=== PATIENT | female | born 1980 | race Caucasian/White ===

== ENCOUNTER → 2017-06-16 15:25 | Outpatient (CLI) | payer MEDICAID, SELFPAY ==
[2017-06-19 08:46] LABS: HPV APTIMA, High Risk Negative (Negative)
== END ==
PROVIDERS: Family Provider Internal Medicine; PCP Internal Medicine; Visit Provider Obstetrics & Gynecology
DX: Z01.419 Encounter for gynecological examination (general) (routine) without abnormal findings (principal); Z12.4 Encounter for screening for malignant neoplasm of cervix
CPT/HCPCS: 88175; G0145

== ENCOUNTER → 2017-08-04 12:32 | Outpatient (CLI) | payer MEDICAID, SELFPAY ==
--- NOTE | 2017-08-04 12:32 | DT_ITS ---
This patient was seen during an EMR downtime August 04, 2017 - August 11, 2017. This patient may have a combination of paper and electronic documentation or all paper documentation. All documentation is viewable within the e-chart portion of [facility] for each patient visit.
[2017-08-10 19:42] LABS: Vitamin D,25 Hydroxy 30.8 ng/mL (29.95-100.01)
== END ==
PROVIDERS: Family Provider Internal Medicine; PCP Internal Medicine; Visit Provider Obstetrics & Gynecology
DX: E55.9 Vitamin D deficiency, unspecified (principal)
CPT/HCPCS: 36415; 82306

== ENCOUNTER 2018-05-18 17:31 | Emergency (ER) | payer MEDICAID, SELFPAY ==
[2018-05-18 17:31] VITALS: BP 120/83; PULSE 100; RESP 16; TEMP 36.6; O2SAT 100; BMI 23.7
[2018-05-18] MEDS: 0.9% Normal Saline 1,000 ML 1000 ML IV (18:30)
[2018-05-18 18:45] LABS: Absolute Neutrophil Count 3.1 X10^3/uL (2.0-7.7); Basophil# 0.05 X10^3/uL; Basophil% 0.9 % (0-1); Eosinophil# 0.17 X10^3/uL; Hematocrit 40.1 % (37-47); Hemoglobin 13.3 g/dl (12.0-15.0); Lymphocyte % 35.1 % (19-41); Mean Corp Hgb Conc 33.2 g/gl (32-36); Mean Corpuscular Hgb 28.5 pg (27.0-32.0); Mean Corpuscular Volume 86.1 fL (81-99); Mean Platelet Vol. 9.5 fl (6.2-12.0); Monocyte# 0.38 X10^3/uL; Monocyte% 6.7 % (0-10); Neutrophil # 3.08 X10^3/uL (2.7-7.7); Neutrophil % 54.1 % (47-70); Platelet Count 287 K/mm3 (150-450); RBC Distribution Width CV 12.7 % (11.6-14.6); RBC Distribution Width SD 40.1 fl (35.1-43.9); Red Blood Count 4.66 M/mm3 (4.2-5.4); White Blood Count 5.7 K/mm3 (4.4-11.0)
[2018-05-18 18:47] LABS: POSITIVE COUNT NO; POSITIVE DIFFERENTIAL NO; POSITIVE MORPHOLOGY NO
[2018-05-18 19:48] LABS: Pregnancy, Serum, hCG Quali. NEGATIVE Negative (0-9 Nonpreg)
[2018-05-18 19:57] VITALS: BP 119/82; BP 121/85; BP 131/91; PULSE 74; PULSE 77; PULSE 80
--- NOTE | 2018-05-18 20:02 | ED.DCSUM_ITS ---
- ER Visit Summary Date of Service: 05/18/18 Chief Complaint: [Vaginal bleeding] History of Present Illness: The patient is a 37 F [presents the emergency department complaint of vaginal bleeding that started 3 days ago. Patient states that she said about 2 weeks late on her period and started having some bleeding 3 days ago. Today the bleeding was more severe and she is on for about 6 pads today and she is passing clots so she called in to talk to her MEDICAID PLAN COMPLIANCE DIRECTOR and they referred her to the emergency part. Patient denies any abdominal pain. She does not believe she is . Her had a vasectomy and has had that checked. Patient has a history of endometriosis. Patient has had irregular periods at times.] Physical Examination: [HEENT-PERRLA, EOMI. Cranial nerves II through XII grossly intact. TMs clear. Mucous membranes moist. No adenopathy. Cardiovascular-regular rate and rhythm without murmur or ectopy Lungs-clear to auscultation, chest wall stable without crepitus or subcu emphysema Abdomen-normoactive bowel sounds, soft, nontender, no rebound or rigidity, no peritoneal signs. Extremities-intact ?4, normal range of motion, normal pulses, atraumatic] Test Results: [CBC with differential obtained showed a white count of 5.7, hemoglobin 13, hematocrit 40, platelets 287. test was negative. Orthostatic vital signs were negative.] Emergency Department Course and Treatment: [Patient was given normal saline. Case was discussed with Dr. Conner Briseno who asked that patient follow-up with their office.] Treatment Plan: [Patient to follow-up with MEDICAID PLAN COMPLIANCE DIRECTOR office within next 3-5 days. Patient advised to return if persistent or heavy bleeding, lightheadedness, dizziness, or if she should be going through more than 1 pad an hour for 4 consecutive hours.] Disposition: [Discharged home in stable condition] Impression: [Dysfunctional uterine bleeding] This note was generated with [employer] dictation software. It may contain incorrect words, spelling, and punctuation that were not noted in review of the chart prior to signing ED Disposition - Plan for ED Patient: Referrals: Barbara Nowak MD [Primary Care Provider] -
--- NOTE | 2018-05-18 20:02 | ED.DEP ---
ED Disposition - Plan for ED Patient: Instructions: ED Bleed Irregular Vaginal Referrals: Barbara Nowak MD [Primary Care Provider] - Gracie Tran MD [STAFF PHYSICIAN] - 3-5 Days
== END 2018-05-18 20:08 | disposition home or self-care (01) ==
PROVIDERS: Emergency Provider Emergency Medicine; Family Provider Internal Medicine; PCP Internal Medicine
DX: N93.8 Other specified abnormal uterine and vaginal bleeding (principal)
CPT/HCPCS: 84703; 85025; 96360; 96361; 99284; J7030; A4216

== ENCOUNTER 2018-06-05 11:30 | Outpatient (RCR) | payer MEDICAID, SELFPAY ==
--- NOTE | 2018-05-14 12:04 | HP.PTEVAL_ITS ---
Patient's Visit Information FAY LINDSEY is a 37 year old F referred to Physical Therapy by Enio Banuelos MD with a diagnosis of cervicalgia. Date of Evaluation: 05/14/18 Physical Therapist: Yuan Zaldivar, MENAT, OCS, CSCS - Visit Plan Frequency: 2x /Week Duration: 4-6 Weeks Plan: 2x/week for L cervical STM, stretching adn c/s ROM L rotationa dn extension to tolerance. EG to see weekly to progress VOR adaptation ex. - Subjective Findings: sAW FAMILY DOCTOR who sent to ENT. Getting nausea and dizzyness. Room spins for a week 3 weeks ago. Lying flat on hard surface and sat up and spun the whole day, then felt like aon a boat. Had is previously as a teenager. Had BPPV one time in between. Definitely immroving as she could not move at first adn could not drive. Second week had to be careful driving. Scenery passing made her sick. Still now needs to be careful looking up and down. Feels like on a boat most of time but increased with head movements. Currently 90% better. Was sleepign sitting up because could not lie down. Sleeping semi reclined well. Works as cleaning lady on Tuesdays and felt normal this Friday and work made her worse. Missed two weeks of cleaning. Hobbies: Reading and cannot do it for a while. Scrolling on phone can make her nauseous. Took a walk the other day and did OK, grocery store is worse. basic ADLs.Sees chiropractor and feels better afterwards. no balance problems except when dizzy. Regular exercises. HIT but not lately. - Pain neck pain Pain Intensity (Out of 10): 3 Pain Intensity Range: 2, 7 Comment: tension RIOS, base of skull - Objective c/s aROM 70 R rot, 55 L rotation with pain, 55 ext with crunchy, weak feelign in neck.Sensation WNL to gross light touch in UE, reflexes 2/3 bi and tri. Full UE AROM without pain. Repeated retraction NE. No dizzyness. Oculomotor: VOR 30 seconds horiz 3/10 for one minute. VOR vertical 20 sec 5/10 for 1-2 minutes. - head thrust. convergence OK. pursuit adn saccades are normal adn asymptomatic. - skew eye deviation. Balance is good. - B hallpike but L gives asymmetrical dizzyness adn treated with Brian Chaves. - Balance Scores Functional Gait Assessment Score: 30 % Disability: 0 - Goals Goal 1:: Abolish vertigo. Goal Time Frame: 4-6 Weeks Goal 2:: Pt back to normal exercises and activities. Goal Time Frame: 4-6 Weeks Goal 3:: I approp ex to manage cervicalgia. Goal Time Frame: 4-6 Weeks Goal 4:: pt feel 100% back to normal Goal Time Frame: 4-6 Weeks - Rehabilitation Potential Physical Therapy Diagnosis: cervicalgia and possible vestibular hypofunction. Rehabilitation Potential: Fair - Anticipated Interventions Patient/Client Instruction: Educate patient on: Condition, Plan of Care For the Purpose of:: To decrease pain, To increase tolerance to activity/condition/position Therapeutic Exercise to Include: Strength training, Postural training, Flexibilty training, Passive ROM, Active ROM Comment: adaptation ex. For the Purpose of:: To decrease pain, To increase tolerance to ac tivity/condition/position Manual Therapy Techniques to Include: Soft tissue mobilization For the Purpose of:: To increase ROM, To improve nutrient delivery to tissue Thank you for the opportunity to evaluate your patient. For Medicare and Medicare HMO plans, please review the plan of care and approve it. It will need to be FAXED BACK to us at [phone] for Medicare purposes. For Medicare only, by signing this I certify the plan of care. Please let me know if there are questions or concerns regarding this plan of care. Physician Signature: Date:
--- NOTE | 2018-08-25 18:37 | HP.PTDCNRP_ITS ---
HP - Discharge Summary (1) - Patient Information FAY LINDSEY was seen in my office for initial evaluation on 05/14/18. The following Plan of Care was established for this patient: Initial Frequency: 2x /Week Initial Duration: 4-6 Weeks - Anticipated Interventions Patient/Client Instruction: Educate patient on: Condition, Plan of Care For the Purpose of:: To decrease pain, To increase tolerance to activity /condition/position Therapeutic Exercise to Include: Strength training, Postural training, Flexibilty training, Passive ROM, Active ROM For the Purpose of:: To decrease pain, To increase tolerance to activity/condition/position Manual Therapy Techniques to Include: Soft tissue mobilization For the Purpose of:: To increase ROM, To improve nutrient delivery to tissue This patient was last seen in our office 06/05/18. Pertinent comments regarding their Physical therapy will appear below: Pt seen 7 visits of POC adn was doing better but had a slight setback prior to last visit. She was treated and was to f/u 2 weeks later but did not schedule or attend. at this point, it has been over 2 months and I will disconinue due to nonattendaance. At this point I will be discontinuing this patient from physical therapy. I would be happy to see this patient again in the future if found appropriate by the physician. Thank you! Yuan Zaldivar, DPT, OCS, CSCS
== END 2018-06-05 19:00 | disposition home or self-care (01) ==
LOC: PT 11:30
PROVIDERS: Family Provider Internal Medicine; PCP Internal Medicine; Referring Provider Otolaryngology; Visit Provider Otolaryngology
DX: M54.2 Cervicalgia (principal); R42 Dizziness and giddiness
CPT/HCPCS: 97110; 97140; 97162; 97530

== ENCOUNTER 2019-03-07 22:42 | Emergency (ER) | payer MEDICAID, SELFPAY ==
[2019-03-07 22:43] VITALS: BP 146/98; PULSE 73; RESP 18; TEMP 36.7; O2SAT 100; BMI 26.6
--- NOTE | 2019-03-07 22:47 | ED.RN ---
CALLED FOR EKG PER RN REQUEST, PULLED OLD EKGS FOR
[2019-03-07 23:02] VITALS: O2SAT 100
--- NOTE | 2019-03-07 23:02 | EKG12_ITS ---
Test Reason : CP Blood Pressure : / mmHG Vent. Rate : 083 BPM Atrial Rate : 083 BPM P-R Int : 176 ms QRS Dur : 090 ms QT Int : 388 ms P-R-T Axes : 058 079 037 degrees QTc Int : 455 ms Normal sinus rhythm Normal ECG Confirmed by JOSETTE SCHULZ, RONY ([id number]), assistant production editor RHYS FOWLER ([id number]) on 03/09/2019 8:57:18 AM Referred By: RENE Confirmed By:RONY FINCH MD
[2019-03-07 23:07] VITALS: BP 115/90; PULSE 72; RESP 14; O2SAT 100
[2019-03-07] MEDS: Aspirin 81 MG TAB.CHEW 324 MG PO (23:10)
--- NOTE | 2019-03-07 23:10 | RAD_ITS ---
STUDY: X-RAY CHEST REASON FOR EXAM: Female, 38 years old. chest tightness TECHNIQUE: Single AP portable view of the chest. COMPARISON: None. FINDINGS: The lungs are clear and expanded. There is no demonstrated pleural abnormality. Normal size heart. Normal mediastinum and chato. Normal visualized pulmonary arteries. Normal visualized aortic arch and descending thoracic aorta. Normal visualized thoracic spine. Normal visualized ribs, clavicles, and shoulders. There is no demonstrated abnormality of the visualized soft tissue structures of the upper abdomen. RAD/Chest 1 View (Portable) IMPRESSION: Normal x-ray examination of the chest. Electronically Signed: Maeve Corona MD at 0:30 EST , Service support ,
[2019-03-07] MEDS: 0.9% Normal Saline 1,000 ML 150 ML IV (23:23)
--- NOTE | 2019-03-07 23:24 | ED.DCSUM_ITS ---
History of Present Illness Chief Complaint: Chest Pain Detail of Chief Complaint: Chest heaviness Informant: Patient Onset: Today Current Severity: Mild Maximum Severity: Mild Narrative: Patient reports waking with chest heaviness this morning. She states she is just felt very fatigued and went to lay around all day. Pain does intermittently get better and worse, but no precipitating factors that she can find. She denies significant shortness of breath. She is had a recent sore throat and several family members have had URI symptoms. She does report family history of cardiac disease and her grandmother had blood clots. - Past Medical History (1) Mitral valve prolapse Status: Chronic Past Medical History - Allergies and Home Meds Allergies/Adverse Reactions: Allergies prednisone Allergy (Verified 03/07/19 22:44) Other tachycardia Primary Care Physician: Sue Vivar MD [Primary Care Provider] - 1 Week if not improving Prior records reviewed: Yes Lives: With Family Smoking Status: Former smoker Review of Systems General: Denies: Chills, Fever Eyes: Denies: Visual changes - bilaterally ENT: Reports: Sore throat. Denies: Bilateral ear pain Cardiovascular: Reports: Chest pain, Palpitations Respiratory: Denies: Dyspnea, Cough Gastrointestinal: Denies: Abdominal pain, Nausea, Vomiting, Diarrhea Genitourinary: Denies: Dysuria Musculoskeletal: Denies: Back pain, Extremity Pain Skin: Denies: Rash Neurological: Denies: Headache, Parasthesia, Numbness Allergy: Denies: Uticaria Physical Exam Vital Signs/Narrative: Vital Signs Temp Pulse Resp BP Pulse Ox 03/07/19 23:07 72 14 115/90 H 100 03/07/19 23:02 100 03/07/19 22:43 98.0 F 73 18 146/98 H 100 Inital Vital Signs reviewed: Yes General: Well nourished, Well developed Head: Normocephalic Eyes: EOMI ENT: Moist mucous membranes, - - Tonsils 2+ with erythema. No exudate noted. Uvula midline. Neck: Supple Cardiovascular: Regular rate, Regular rhythm Respiratory: No distress, CTA bilaterally, Chest tenderness - Mild reproducible chest wall tenderness. Abdomen: Soft, Nontender Extremities: Nontender Skin: Normal color, No rash Neurological: Alert, Oriented x3 Psychological: Normal affect Diagnostic/Tx/Re-eval Chest X-Ray - ED: 1 View, Read by ED Physician, - - Hyperinflation with no focal infiltrate Impressions Chest X-Ray 03/07/19 23:10 IMPRESSION: Normal x-ray examination of the chest. Electronically Signed: Maeve Corona MD at 0:30 EST , Service support , 03/07/19 23:10 Chest 1 View (Portable) [RAD] Stat 03/07/19 23:28 Mucosa - Throat Group A Streptococcus Rapid Screen - Preliminary Laboratory Results 03/07/19 03/07/19 03/07/19 23:15 23:15 23:15 WBC 8.4 RBC 4.73 Hgb 13.1 Hct 39.8 MCV 84.1 MCH 27.7 MCHC 32.9 RDW Std Deviation 37.5 RDW Coeff of Familia 12.4 Plt Count 290 MPV 9.6 Immature Gran % (Auto) 0.200 Neut % (Auto) 54.5 Lymph % (Auto) 34.5 [place] % (Auto) 7.1 Eos % (Auto) 2.6 Baso % (Auto) 1.1 H Absolute Neuts (auto) 4.6 Absolute Lymphs (auto) 2.88 Nucleated RBC % 0 D-Dimer Quant (PE/DVT) 0.45 Sodium 140 Potassium 4.1 Chloride 108 H Carbon Dioxide 28.0 Anion Gap 4 L BUN 15 Creatinine 0.86 Estim Creat Clear Calc 100.11 Est GFR (MDRD) Af Amer 95 Est GFR (MDRD) Non-Af 78 BUN/Creatinine Ratio 17.3 Glucose 97 Calcium 9.2 Troponin I < 0.015 Serum , Qual 03/07/19 23:15 WBC RBC Hgb Hct MCV MCH MCHC RDW Std Deviation RDW Coeff of Familia Plt Count MPV Immature Gran % (Auto) Neut % (Auto) Lymph % (Auto) [place] % (Auto) Eos % (Auto) Baso % (Auto) Absolute Neuts (auto) Absolute Lymphs (auto) Nucleated RBC % D-Dimer Quant (PE/DVT) Sodium Potassium Chloride Carbon Dioxide Anion Gap BUN Creatinine Estim Creat Clear Calc Est GFR (MDRD) Af Amer Est GFR (MDRD) Non-Af BUN/Creatinine Ratio Glucose Calcium Troponin I Serum , Qual NEGATIVE - EKG Initial EKG Interpretation: Sinus Rhythm - Sinus 83 with no acute ischemia. - Medical Decision Making Patient was given aspirin on arrival. Lab work and chest x-ray results are discussed with her. Rapid strep is negative. I did advise the patient she does have some reproducibility to her chest pain and she may have costochondritis, especially with recent sore throat and multiple family members with viral illness. She will take Advil at home on a regular basis. She is to return for worsening symptoms or concerns. ED Disposition - Plan for ED Patient: Disposition: Home or Assisted Living Diagnosis: Costochondritis Instructions: CHEST WALL PAIN, Costochondritis Referrals: Sue Vivar MD [Primary Care Provider] - 1 Week if not improving
[2019-03-07 23:45] LABS: Internal QC Validated? YES +Cl - CLEAR BKGD; Pregnancy, Serum, hCG Quali. NEGATIVE Negative
[2019-03-07 23:49] LABS: D-Dimer Quantitative (DVT/PE) 0.45 FEU/ug/m (0.27-0.49)
[2019-03-07 23:50] LABS: Anion Gap 4 (5-15); BUN 15 mg/dL (7-18); BUN/Creat Ratio 17.3 RATIO (10-20); Calcium,Total 9.2 mg/dL (8.5-10.1); Chloride 108 mmol/L (98-107); Creatinine, Serum 0.86 mg/dL (0.55-1.02); EST Glomerular Filtration Rate 78 mL/min (>60); Est Glom Filt Rate - Afr Amer 95 mL/min (>60); Estimated Creatinine Clearance 100.11 ml/min; Glucose 97 mg/dL (74-106); Potassium 4.1 mmol/L (3.5-5.1); Sodium Level 140 mmol/L (136-145)
[2019-03-07 23:56] LABS: Absolute Lymphocyte Count 2.88 X10^3/uL (0.83-4.51); Absolute Neutrophil Count 4.6 X10^3/uL (2.0-7.7); Basophil# 0.09 X10^3/uL; Basophil% 1.1 % (0-1); Eosinophil# 0.22 X10^3/uL; Eosinophils% 2.6 % (0-5); Hematocrit 39.8 % (37-47); Hemoglobin 13.1 g/dL (12.0-15.0); Lymphocyte # 2.88 X10^3/ul (4.0); Lymphocyte % 34.5 % (19-41); Mean Corp Hgb Conc 32.9 g/dL (32-36); Mean Corpuscular Hgb 27.7 pg (27.0-32.0); Mean Corpuscular Volume 84.1 fL (81-99); Mean Platelet Vol. 9.6 fl (6.2-12.0); Monocyte# 0.59 X10^3/uL; Monocyte% 7.1 % (0-10); NRBC Flagged by Analyzer 0 % (0-5); Neutrophil # 4.55 X10^3/uL (2.7-7.7); Neutrophil % 54.5 % (47-70); Platelet Count 290 K/mm3 (150-450); RBC Distribution Width CV 12.4 % (11.6-14.6); RBC Distribution Width SD 37.5 fl (35.1-43.9); Red Blood Count 4.73 M/mm3 (4.2-5.4); White Blood Count 8.4 K/mm3 (4.4-11.0)
[2019-03-08 00:07] VITALS: BP 107/78; PULSE 70; RESP 16; O2SAT 100
[2019-03-08 00:54] VITALS: BP 103/74; PULSE 74; RESP 16; O2SAT 99
== END 2019-03-08 00:55 | disposition home or self-care (01) ==
PROVIDERS: Emergency Provider Emergency Medicine; Family Provider Family Medicine; PCP Family Medicine
DX: M94.0 Chondrocostal junction syndrome [Tietze] (principal); J02.9 Acute pharyngitis, unspecified; Z82.49 Family history of ischemic heart disease and other diseases of the circulatory system; Z87.891 Personal history of nicotine dependence
CPT/HCPCS: 71045; 80048; 84484; 84703; 85025; 85379; 87880; 93005; 96360; 96361; 99285; J7030; A4216

== ENCOUNTER 2019-04-01 12:00 | Outpatient (RCR) | payer MEDICAID, SELFPAY ==
--- NOTE | 2019-01-20 09:53 | HP.PTEVAL ---
Patient's Visit Information FAY LINDSEY is a 38 year old F referred to Physical Therapy by Enio Banuelos MD with a diagnosis of cervical vertigo, cervicalgia. Date of Evaluation: 01/20/19 Physical Therapist: Yuan Zaldivar, FRITZ, OCS, CSCS - Visit Plan Frequency: 1-2x /Week Duration: 4-6 Weeks Plan: 1-2x/week for 2-6 weeks for. 1. monitor need for further positional(R fredy today) and vestibular habituation. 2. monitor cervical spine for pain, RIOS, ROM issues and treat with sTM, stretching and strengthening as needed. 3. Get p-atient to a [facility] ex program for myla and weight management without any dizzy symptoms. - Subjective Findings: Had therapy for this prior and got 90% better. Could not continue and now has gotten worse. Never was able to lie flat but was tolerating most ADLS without too much difficulty. Never got back to a good workout outside of ex bike. Was at computer as she is weekly about two weeks ago adn started spinning. Has gotten worse to the point where it is there all day. Feels car sick or like she is on a boat, tilts head and room spins, cannot lie flat. Bending to tie shoes makes her spin. Looking up can cause it and bending, spinning is transient but doesn't feel good again until she sleeps. Sleeping inclined to avoid dizzyness. Cleans once per week for money but lady cancelled last week adn that made her happy. Basic ADLs are done but not great. Switched doctors recently to Dr. Thakkar adn sent to Dr. Banuelos but they just sent her for therapy without a visit. RIOS have been there lately much worse last few months. Last therapy session VOr helped as well as STM and then strength training. Did those ex for a while. Stopped them after a while. - Pain RIOS Pain Intensity (Out of 10): 0 Pain Intensity Range: 0, 4 - Objective Posture is forward head and protracted elevated scapula, hesitant to mvoe quickly.Walks I slowly and hesitant to move head but good balance. Trasnfers slow but I. Steps reciprocal without rail. Neck ROM slow to move head but near full ROM without pain. 60 rotations and 50 ext but hesitant to look up and makes nauseous when she does it. UE AROM WFL. Positional tests: - L hallpike, + R hallpike for gentle up torsional nystagmus after 8 second delay for about 15 seconds. Treated with R fredy then - Hallpike inder. - Balance Scores Functional Gait Assessment Score: 29 % Disability: 3.3400 CATSIB Score (Max score 120 seconds): 120 - Goals Goal 1:: Abolish vertigo 99% Goal Time Frame: 4-6 Weeks Goal 2:: Patient feel back to baseline symptoms including RIOS and dizzyness. Goal Time Frame: 4-6 Weeks Goal 3:: Pt I in appropriate home management of dizzyness including back to regular ex of her choosing. Goal Time Frame: 4-6 Weeks - Rehabilitation Potential Physical Therapy Diagnosis: BPPV, possibly cervicalgia Rehabilitation Potential: Fair - Anticipated Interventions Patient/Client Instruction: Educate patient on: Condition, Plan of Care For the Purpose of:: To decrease pain, To increase tolerance to activity/condition/position Therapeutic Exercise to Include: Strength training, Postural training, Flexibilty training, Passive ROM, Active ROM Comment: vestibular For the Purpose of:: To decrease pain, To improve muscle performance and motor function, To increase tolerance to activity/condition/position, To improve ability of physical actions for home/community/work/leisure Manual Therapy Techniques to Include: Soft tissue mobilization For the Purpose of:: To decrease swelling/inflammation, To improve nutrient delivery to tissue Thank you for the opportunity to evaluate your patient. For Medicare and Medicare HMO plans, please review the plan of care and approve it. It will need to be FAXED BACK to us at [phone] for Medicare purposes. For Medicare only, by signing this I certify the plan of care. Please let me know if there are questions or concerns regarding this plan of care. Physician Signature: Date:
--- NOTE | 2019-04-01 12:33 | HP.PTREVAL_ITS ---
Enio Banuelos MD, It has been my pleasure to treat FAY LINDSEY over the last 7 visits for cervical vertigo, cervicalgia. Please see the progress note below for an update on the physical therapy plan of care! Subjective: [place] great last time upon leaving then bad RIOS a few hours later. Next day felt good then bad RIOS two days later. Dizzyness has been increased with HAs being worse. Minimal if moves fast or does stuff. Stress has been high this week. Met with functional medicine doctor. Trying to change the whole diet. Objective/Function: Patient is up and down with symptoms for no obvious reason and not coming along as expected with vestibular ex. Cervical ROM is fulla dn without pain today. Due to erratic nature of patients symptoms she will continue with strength via HEP and hold on vestibular ex and follow docotr's elimination diet orders. Plan Plan: f/u one month to check c/s ROM, dizzyness and progress to general HEP if desired. See how elimination diet is working. Goals Goal 1:: Abolish vertigo 99% Goal Time Frame: 4-6 Weeks Goal Progress: set back, eradic Goal 2:: Patient feel back to baseline symptoms including RIOS and dizzyness. Goal Time Frame: 4-6 Weeks Goal Progress: stagnant at holidays, nina Goal 3:: Pt I in appropriate home management of dizzyness including back to regular ex of her choosing. Goal Time Frame: 4-6 Weeks Goal Progress: has HEP, erratic sx Goal 4:: Pt have full AROM cervical spine without pain Goal Time Frame: 2-4 Weeks Goal Progress: Goal Met Anticipated Interventions Patient/Client Instruction: Educate patient on: Condition, Plan of Care For the Purpose of:: To decrease pain, To increase tolerance to activity/condition/position Therapeutic Exercise to Include: Strength training, Postural training, Flexibilty training, Passive ROM, Active ROM Comment: vestibular For the Purpose of:: To decrease pain, To improve muscle performance and motor function, To increase tolerance to activity/condition/position, To improve ability of physical actions for home/community/work/leisure Manual Therapy Techniques to Include: Soft tissue mobilization For the Purpose of:: To decrease swelling/inflammation, To improve nutrient delivery to tissue Please do not hesitate to contact me at [phone] by phone or if you have questions or concerns regarding this new plan of care! Sincerely, Yuan Zaldivar, DPT, OCS, CSCS
--- NOTE | 2019-06-08 14:30 | HP.PT.NRP ---
FAY LINDSEY was seen in my office for initial evaluation on 01/20/19. The following Plan of Care was established for this patient: Initial Frequency: 1-2x /Week Initial Duration: 4-6 Weeks Patient/Client Instruction: Educate patient on: Condition, Plan of Care For the Purpose of:: To decrease pain, To increase tolerance to activity/condition/position Therapeutic Exercise to Include: Strength training, Postural training, Flexibilty training, Passive ROM, Active ROM For the Purpose of:: To decrease pain, To improve muscle performance and motor function, To increase tolerance to activity/condition/position, To improve ability of physical actions for home/community/work/leisure Manual Therapy Techniques to Include: Soft tissue mobilization For the Purpose of:: To decrease swelling/inflammation, To improve nutrient delivery to tissue This patient was last seen in our office 04/01/19. Pertinent comments regarding their Physical therapy will appear below: Pt seen 7 visits and was 80% better. She did not show up for her last scheduled visit. At this point, it has been over two months and I will discontinue from my care. At this point I will be discontinuing this patient from physical therapy. I would be happy to see this patient again in the future if found appropriate by the physician. Thank you! Yuan Zaldivar, DPT, OCS, CSCS
== END 2019-04-01 19:00 | disposition home or self-care (01) ==
LOC: PT 12:00
PROVIDERS: Family Provider Family Medicine; PCP Family Medicine; Referring Provider Otolaryngology; Visit Provider Otolaryngology
DX: M54.2 Cervicalgia (principal); R42 Dizziness and giddiness
CPT/HCPCS: 97012; 97110; 97162; 97530

== ENCOUNTER 2020-08-03 13:56 | Outpatient (RCR) | payer MEDICAID, SELFPAY ==
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
--- NOTE | 2020-12-07 17:05 | HP.PT.NRP ---
FAY LINDSEY was seen in my office for initial evaluation on 08/03/20. The following Plan of Care was established for this patient: Initial Frequency: 2x /Week Initial Duration: 4 Weeks Patient/Client Instruction: Educate patient on: Condition, Plan of Care For the Purpose of:: To decrease pain, To increase ROM, To improve muscle performance and motor function, To improve ability to perform ADL's, To increase tolerance to activity/condition/position, To improve ability of physical actions for home/community/work/leisure, To improve health of tissue, To decrease soft tissue restriction, To increase flexibility/ROM, To reduce risk of recurrence, To improve ability to perform tasks related to life management Therapeutic Exercise to Include: Strength training, Postural training, Flexibilty training, Scapular Strength/Stabilization For the Purpose of:: To decrease pain, To increase ROM, To improve muscle performance and motor function, To improve ability to perform ADL's, To increase tolerance to activity/condition/position, To improve ability of physical actions for home/community/work/leisure, To improve health and function, To improve ability to perform tasks related to life management Manual Therapy Techniques to Include: Mobilization For the Purpose of:: To decrease pain, To improve muscle performance and motor function, To improve ability to perform ADL's TENS: Yes IF ES: Yes Cryotherapy (ice pack, ice massage): Yes Thermo therapy (hot pack): Yes For the Purpose of:: To decrease pain, To improve health of tissue, To decrease soft tissue restriction This patient was last seen in our office . Pertinent comments regarding their Physical therapy will appear below: Patient seen for PT for Intial PT evaluation for HEP At this point I will be discontinuing this patient from physical therapy. I would be happy to see this patient again in the future if found appropriate by the physician. Thank you! Zander Madrid, PT, Cert MDT, OCS Balance/Gait/Functional tests - Balance/Special Test Scores Oswestry Neck Score: 15
== END 2020-08-03 19:00 | disposition home or self-care (01) ==
LOC: PT 13:56
PROVIDERS: PCP Family Medicine; Referring Provider Family Medicine; Visit Provider Family Medicine
DX: M50.01 Cervical disc disorder with myelopathy, high cervical region (principal)
CPT/HCPCS: 97110; 97162

== ENCOUNTER → 2020-08-28 | Outpatient (CLI) | payer MEDICAID, SELFPAY ==
[2020-08-28 15:19] LABS: Bacteria 0 SEEN /hpf (None Seen); Mucous, Urine 0 SEEN /hpf (<or=2+); Red Blood Cells-Urine 0 SEEN /hpf (0-5); Squamous Epithelial Cells - UA 0 SEEN /hpf (5-10); White Blood Cells 0 SEEN /hpf (0-5)
[2020-08-28 15:40] LABS: Color, Urine Yellow (Yellow); Glucose, Dipstick Normal (Normal); Ketone-Dipstick Negative (Negative); Leukocyte Esterase-Dipstick Negative /ul (Negative); Nitrite-Dipstick Negative (Negative); Occult Blood-Urine Negative /ul (Negative); Protein-Dipstick Negative (Negative); Specific Gravity, Urine 1.005 (1.002-1.030); Urine Bilirubin Dipstick Negative (Negative); Urine Clarity Clear (Clear); Urine Urobilinogen Normal (Normal)
== END | disposition home or self-care (01) ==
LOC: LABSPEC 15:05
PROVIDERS: PCP Family Medicine; Visit Provider Obstetrics & Gynecology
DX: R10.32 Left lower quadrant pain (principal)
CPT/HCPCS: 81001; 87077; 87086; 87088; 87186

== ENCOUNTER → 2020-10-05 12:10 | Outpatient (CLI) | payer MEDICAID, SELFPAY ==
--- NOTE | 2020-10-05 12:13 | RAD_ITS ---
STUDY: X-RAY CHEST REASON FOR EXAM: Female, 40 years old. COUGH, HX OF ASTHMA, FEVER TECHNIQUE: PA and lateral views of the chest. COMPARISON: 03/07/2019 FINDINGS: Alveolar opacity in the lower left lung consistent with left lower lobe pneumonia. There is no demonstrated pleural abnormality. Normal size heart. Normal mediastinum and hcato. Normal visualized pulmonary arteries. Normal visualized aortic arch and descending thoracic aorta. Normal visualized thoracic spine. Normal visualized ribs, clavicles, and shoulders. There is no demonstrated abnormality of the visualized soft tissue structures of the upper abdomen. RAD/Chest PA and Lateral IMPRESSION: Left lower lobe pneumonia. Electronically Signed: Juan Daniel Tsang MD at 15:09 EDT Tel , Service support ,
== END ==
PROVIDERS: PCP Family Medicine; Referring Provider Family Medicine; Visit Provider Family Medicine
DX: J45.901 Unspecified asthma with (acute) exacerbation (principal)
CPT/HCPCS: 71046

== ENCOUNTER 2021-03-15 08:05 | Emergency (ER) | payer MEDICAID, SELFPAY ==
[2021-03-15 08:06] VITALS: BP 128/86; PULSE 93; RESP 14; TEMP 36.7; O2SAT 100; BMI 26.4
--- NOTE | 2021-03-15 08:27 | CT_ITS ---
STUDY: CT ABDOMEN AND PELVIS WITH CONTRAST REASON FOR EXAM: Female, 40 years old. Abdominal pain -- IV PO Contrast. Left ovarian pain. RADIATION DOSAGE (If Supplied By Facility): CTDIvol = ( 14.26 ) mGy, DLP = ( 983.42 ) mGycm TECHNIQUE: Transaxial images were obtained from the dome of the diaphragm to the symphysis pubis with oral contrast. Oral and amp; IV Gastrografin and amp; 100mL Isovue-300 was administered. Sagittal and coronal images were reconstructed. Individualized dose optimization techniques were used for this CT. COMPARISON: Comparison is made with prior study dated 02/09/2017. FINDINGS: The visualized lung bases are unremarkable. The visualized portions of the heart are within normal limits. There is decreased attenuation of the liver consistent with steatosis. Normal gallbladder and extrahepatic biliary system. Normal spleen. Normal pancreas. Normal bilateral adrenal glands. Mild degree of right hydronephrosis. No obstructive uropathy is seen. Normal left kidney. There is a small hiatal hernia. Normal small intestine. There are scattered colonic diverticula consistent with diverticulosis. The appendix is visualized and appears normal. Normal abdominal aorta. Normal inferior vena cava. Normal retroperitoneum. Normal urinary bladder. Follicles are seen in the right ovary. The uterus is enlarged. There is a small umbilical hernia containing fat. Normal osseous structures. CT/Abdomen/Pelvis WITH Contrast IMPRESSION: Fatty infiltration of the liver. Mild degree of right hydronephrosis. This is unchanged. Electronically Signed: Joey Carrion MD at 10:35 EST , Service support ,
--- NOTE | 2021-03-15 08:29 | ED.VIS.GI ---
HPI HPI - GI History of Present Illness Chief Complaint: Abd Pain Informant: patient Abdominal Pain/Flank Pain Onset: Yesterday Timing: Continuous Quality: Aching and Sharp Location: RLQ and LLQ Worsened by: Movement Relieved by: Nothing Nausea/Vomiting/Emesis GI Symptom: Positive for Nausea; Negative for Vomiting Diarrhea/Melena/Hematochezia GI Symptom: Negative for Diarrhea, Melena and Hematochezia Associated Symptoms Associated Symptoms: Negative for Dysuria and Hematuria Narrative Narrative: Patient presents with lower abdominal pain that began yesterday. Patient states that has been constant since yesterday. Patient states it has gradually gotten worse. Patient states is worse over the left lower quadrant but is also in the right lower abdomen and pelvic area. Patient states her pain is worse with standing and with certain movements. Patient admits to nausea but denies any vomiting. Patient denies any diarrhea, melena, or hematochezia. Patient denies any dysuria or hematuria. [facility] Medical History (Updated 03/15/21 @ 11:[address] Yuan Jackson DO) Asthma Mitral valve prolapse Home Medications NK 03/07/19 [History Last Taken Unknown] Allergy/AdvReac Type Severity Reaction Status Date / Time prednisone Allergy Other Verified 03/15/21 08:09 Surgical History (Updated 03/15/21 @ 08:[address] Yuan Jackson DO) History of cervical cerclage Social History Smoking Status: Former smoker alcohol intake: never ROS ROS ED Constitutional Constitutional ED: Denies chills or fever(s) Eyes Eyes: Denies blurry vision or change in vision ENT ENT ED: Denies rhinorrhea or sore throat Cardiovascular Cardiovascular: Denies chest pain or palpitations Respiratory/Chest Respiratory/Chest: Denies cough or dyspnea Gastrointestinal Gastrointestinal: Reports abdominal pain and nausea; Denies vomiting Genitourinary Genitourinary ED: Denies dysuria or hematuria Musculoskeletal Musculoskeletal: Denies back pain or neck pain Integumentary Denies abscess or rash Neurologic Neurologic: Denies headache(s) or weakness Allergic/Immunologic Allergic/Immunologic ED: Denies mouth swelling or urticaria EXAM Physical Exam Const Vital Signs: 03/15/21 08:06 Temperature 98.1 F Temperature Source Temporal Pulse Rate 93 Respiratory Rate 14 Blood Pressure 128/86 H Blood Pressure Mean 100 Pulse Ox 100 Oxygen Delivery Method Room Air Positive well nourished and well developed General Appearance ED: well developed HEENT Reports moist mucous membranes Neck supple and no JVD Resp normal respiratory effort and clear to auscultation bilaterally Cardio regular rate, regular rhythm and no murmurs GI normal to inspection, nondistended, normoactive bowel sounds and non-distended Auscultation: normoactive bowel sounds Palpation: soft and tender LLQ, RLQ and suprapubic; Negative for guarding or rebound tenderness present Extremity normal to inspection General Extremety ED: Negative for edema or tenderness General Extremity: Negative for edema Neuro oriented x3, CN's II-XII intact bilaterally and no sensory deficits noted Sensorium / Orientation: alert Motor Exam: strength 5/5 throughout Psych mental status grossly normal Skin no rashes or lesions noted MDM MDM MDM Narrative Medical decision making narrative: Patient was given IV fluids, morphine, and Zofran. CBC and comprehensive metabolic profiles were obtained and were essentially within normal limits. Urinalysis shows leukocyte Estrace of 100 with occult blood of 250. There were greater than 100 red blood cells but 0 white blood cells. Serum hCG was negative. CT scan of the abdomen pelvis was obtained. There is mild right hydronephrosis which is chronic. There is mild fatty infiltration of the liver. There is no other acute process noted. This was interpreted by the radiologist and reviewed by myself. Patient was advised of her findings. Patient feels better on reevaluation. Patient declined any analgesic pain medications at home. Patient was instructed to take Tylenol or ibuprofen as needed for the pain. Patient was instructed to follow-up with her primary care physician in 3 to 5 days. Patient understood and was agreeable with the plan. All questions were answered. Lab Data Attestation: I reviewed the patient's lab results. Labs: Laboratory Results - last 24 hr 03/15/21 03/15/21 03/15/21 08:38 08:40 08:40 WBC 4.9 RBC 5.10 Hgb 13.7 Hct 41.6 MCV 81.6 MCH 26.9 L MCHC 32.9 RDW Std Deviation 39.8 RDW Coeff of Familia 13.5 Plt Count 254 MPV 9.6 Immature Gran % (Auto) 0.200 Neut % (Auto) 65.2 Lymph % (Auto) 23.5 Charles % (Auto) 7.6 Eos % (Auto) 2.5 Baso % (Auto) 1.0 Absolute Neuts (auto) 3.2 Absolute Lymphs (auto) 1.14 Nucleated RBC % 0 Sodium 139 Potassium 3.6 Chloride 107 Carbon Dioxide 29.0 Anion Gap 3 L BUN 11 Creatinine 0.79 Estim Creat Clear Calc 106.86 Est GFR (MDRD) Af Amer 104 Est GFR (MDRD) Non-Af 86 BUN/Creatinine Ratio 14.0 Glucose 99 Calcium 9.0 Total Bilirubin 1.60 H AST 17 ALT 30 Alkaline Phosphatase 100 Total Protein 7.6 Albumin 3.8 Globulin 3.8 Albumin/Globulin Ratio 1.0 Serum , Qual Urine Color SEE COMMENT BELOW Urine Clarity Sl. Cloudy Urine pH 7.0 Ur Specific [place] 1.010 Urine Protein 30 H Urine Glucose (UA) Normal Urine Ketones Negative Urine Occult Blood 250 H Urine Nitrite Negative Urine Bilirubin Negative Urine Urobilinogen Normal Ur Leukocyte Esterase 100 H Urine RBC > 100 SEEN Urine WBC 0 SEEN Ur Squamous Epith Cells 0-5 SEEN Urine Bacteria 0 SEEN Urine Mucus 0 SEEN 03/15/21 08:40 WBC RBC Hgb Hct MCV MCH MCHC RDW Std Deviation RDW Coeff of Familia Plt Count MPV Immature Gran % (Auto) Neut % (Auto) Lymph % (Auto) Charles % (Auto) Eos % (Auto) Baso % (Auto) Absolute Neuts (auto) Absolute Lymphs (auto) Nucleated RBC % Sodium Potassium Chloride Carbon Dioxide Anion Gap BUN Creatinine Estim Creat Clear Calc Est GFR (MDRD) Af Amer Est GFR (MDRD) Non-Af BUN/Creatinine Ratio Glucose Calcium Total Bilirubin AST ALT Alkaline Phosphatase Total Protein Albumin Globulin Albumin/Globulin Ratio Serum , Qual NEGATIVE Urine Color Urine Clarity Urine pH Ur Specific [place] Urine Protein Urine Glucose (UA) Urine Ketones Urine Occult Blood Urine Nitrite Urine Bilirubin Urine Urobilinogen Ur Leukocyte Esterase Urine RBC Urine WBC Ur Squamous Epith Cells Urine Bacteria Urine Mucus Radiography Diagnostic Testing: Clinical Impression(s) from Imaging Studies Abdomen/Pelvis CT 03/15/21 08:27 IMPRESSION: Fatty infiltration of the liver. Mild degree of right hydronephrosis. This is unchanged. Electronically Signed: Joey Carrion MD at 10:35 EST , Service support , Discharge Plan Triage Chief Complaint: Abd Pain ED Provider: Yuan Jackson Dx/Rx/DC Orders Clinical Impression: Pelvic pain Instructions: ED Pelvic Pain, Unknown Cause Prescriptions: No Action NK RF: 0 Primary Care Provider: Sue Vivar Referrals: Sue Vivar MD [Primary Care Provider] - 3-5 Days Disposition Disposition: Home, Self Care
[2021-03-15 08:40] LABS: Bacteria 0 SEEN /hpf (None Seen); Mucous, Urine 0 SEEN /hpf (<or=2+); White Blood Cells 0 SEEN /hpf (0-5)
[2021-03-15] MEDS: 0.9% Normal Saline 1,000 ML 1000 ML IV (08:48)
[2021-03-15 08:56] LABS: Absolute Lymphocyte Count 1.14 X10^3/uL (0.83-4.51); Absolute Neutrophil Count 3.2 X10^3/uL (2.0-7.7); Basophil# 0.05 X10^3/uL; Eosinophil# 0.12 X10^3/uL; Eosinophils% 2.5 % (0-5); Hematocrit 41.6 % (37-47); Hemoglobin 13.7 g/dL (12.0-15.0); Lymphocyte # 1.14 X10^3/ul (0.83-4.51); Lymphocyte % 23.5 % (19-41); Mean Corp Hgb Conc 32.9 g/dL (32-36); Mean Corpuscular Hgb 26.9 pg (27.0-32.0); Mean Corpuscular Volume 81.6 fL (81-99); Mean Platelet Vol. 9.6 fl (6.2-12.0); Monocyte# 0.37 X10^3/uL; Monocyte% 7.6 % (0-10); NRBC Flagged by Analyzer 0 % (0-5); Neutrophil # 3.16 X10^3/uL (2.7-7.7); Neutrophil % 65.2 % (47-70); Platelet Count 254 K/mm3 (150-450); RBC Distribution Width CV 13.5 % (11.6-14.6); RBC Distribution Width SD 39.8 fl (35.1-43.9); White Blood Count 4.9 K/mm3 (4.4-11.0)
[2021-03-15 09:05] LABS: Glucose, Dipstick Normal (Normal); Ketone-Dipstick Negative (Negative); Leukocyte Esterase-Dipstick 100 /ul (Negative); Nitrite-Dipstick Negative (Negative); Occult Blood-Urine 250 /ul (Negative); Protein-Dipstick 30 mg/dl (Negative); Urine Bilirubin Dipstick Negative (Negative); Urine Clarity Sl. Cloudy (Clear); Urine Urobilinogen Normal (Normal)
[2021-03-15 09:12] LABS: Color, Urine SEE COMMENT BELOW (Yellow)
[2021-03-15 09:12] LABS: AST(SGOT) 17 U/L (15-37); Alanine Aminotransfer ALT/SGPT 30 U/L (13-56); Albumin, Serum 3.8 g/dL (3.2-5.0); Alkaline Phosphatase 100 U/L (45-117); Anion Gap 3 (5-15); BUN 11 mg/dL (7-18); Chloride 107 mmol/L (98-107); Creatinine, Serum 0.79 mg/dL (0.55-1.02); EST Glomerular Filtration Rate 86 mL/min (>60); Est Glom Filt Rate - Afr Amer 104 mL/min (>60); Estimated Creatinine Clearance 106.86 ml/min; Globulin 3.8 g/dL (2.2-4.2); Glucose 99 mg/dL (74-106); Potassium 3.6 mmol/L (3.5-5.1); Protein, Total 7.6 g/dL (6.4-8.2); Sodium Level 139 mmol/L (136-145)
[2021-03-15 09:14] LABS: Red Blood Cells-Urine > 100 SEEN /hpf (0-5); Squamous Epithelial Cells - UA 0-5 SEEN /hpf (5-10)
[2021-03-15 09:19] LABS: Internal QC Validated? YES +Cl - CLEAR BKGD; Pregnancy, Serum, hCG Quali. NEGATIVE Negative
[2021-03-15 11:33] VITALS: BP 116/77; PULSE 67; RESP 16; O2SAT 99
== END 2021-03-15 11:38 | disposition home or self-care (01) ==
PROVIDERS: Emergency Provider Emergency Medicine; PCP Family Medicine; Visit Provider Emergency Medicine
DX: R10.2 Pelvic and perineal pain (principal); Z87.891 Personal history of nicotine dependence
CPT/HCPCS: 74177; 80053; 81001; 84703; 85025; 96361; 96374; 96375; 99284; J7030; Q9967; A4216; J2405

== ENCOUNTER 2021-04-12 10:48 | Outpatient (CLI) | payer MEDICAID, SELFPAY ==
--- NOTE | 2021-04-12 10:50 | US_ITS ---
STUDY: RENAL ULTRASOUND - COMPLETE REASON FOR EXAM: Female, 40 years old. RT SIDED HYDRONEPHROSIS W/O RECENT STONES TECHNIQUE: Ultrasound evaluation of the kidneys was performed with real-time and static goldstein-scale imaging. COMPARISON: Comparison is made with prior examination dated 01/10/2015. FINDINGS: RIGHT KIDNEY: Normal location of the right kidney, which is normal in size. The right kidney measures 12.4 cm x 4.9 cm x 5.6 cm. There is a normal cortex of the right kidney. The renal cortex measures 1.9 cm. There is no right renal mass or cyst. There are no right renal calculi. There is mild hydronephrosis of the right kidney. DISTAL RIGHT URETER: There is non-visualization of the distal right ureter. There is no demonstrated right ureterovesical junction calculus. There is a visualized right ureteral jet. LEFT KIDNEY: Normal location of the left kidney, which is normal in size. The left kidney measures 11.9 cm x 5.1 cm x 5.5 cm. There is a normal cortex of the left kidney. The renal cortex measures 1.4 cm. There is no left renal mass or cyst. There are no left renal calculi. There is no left hydronephrosis. DISTAL LEFT URETER: There is non-visualization of the distal left ureter. There is no demonstrated left ureterovesical junction calculus. There is a visualized left ureteral jet. BLADDER: The distended urinary bladder has a volume of 525 ml. The empty urinary bladder has a volume of 29 ml. There is a normal wall thickness of the distended urinary bladder. There is no demonstrated mass within the urinary bladder. There are no demonstrated bladder calculi. US/Kidney and Bladder IMPRESSION: Mild right hydronephrosis. Electronically Signed: Joey Carrion MD at 12:45 EST ,
== END 2021-04-12 23:59 | disposition home or self-care (01) ==
LOC: US 10:49
PROVIDERS: PCP Family Medicine; Referring Provider Family Medicine; Visit Provider Family Medicine
DX: N13.30 Unspecified hydronephrosis (principal)
CPT/HCPCS: 76770

== ENCOUNTER → 2021-09-26 | Outpatient (CLI) | payer MEDICAID, SELFPAY | END | disposition home or self-care (01) | PROVIDERS: PCP Family Medicine; Visit Provider Family Medicine ==

== ENCOUNTER → 2022-02-12 | Outpatient (CLI) | payer MEDICAID, SELFPAY ==
[2022-02-12 18:00] LABS: Absolute Lymphocyte Count 1.97 X10^3/uL (0.83-4.51); Absolute Neutrophil Count 2.9 X10^3/uL (2.0-7.7); Basophil# 0.06 X10^3/uL; Basophil% 1.1 % (0-1); Eosinophil# 0.16 X10^3/uL; Hematocrit 41.2 % (37-47); Hemoglobin 13.6 g/dL (12.0-15.0); Lymphocyte # 1.97 X10^3/ul (0.83-4.51); Lymphocyte % 36.6 % (19-41); Mean Corpuscular Hgb 28.2 pg (27.0-32.0); Mean Corpuscular Volume 85.5 fL (81-99); Mean Platelet Vol. 9.8 fl (6.2-12.0); Monocyte% 5.6 % (0-10); NRBC Flagged by Analyzer 0 % (0-5); Neutrophil # 2.88 X10^3/uL (2.7-7.7); Neutrophil % 53.5 % (47-70); Platelet Count 325 K/mm3 (150-450); RBC Distribution Width CV 12.5 % (11.6-14.6); RBC Distribution Width SD 39.1 fl (35.1-43.9); Red Blood Count 4.82 M/mm3 (4.2-5.4); White Blood Count 5.4 K/mm3 (4.4-11.0)
[2022-02-12 18:20] LABS: Vitamin B12 628 pg/mL (211-911); Vitamin D,25 Hydroxy 26.7 ng/mL
[2022-02-12 18:21] LABS: Ferritin 12 ng/mL (8-252); Iron 56 ug/dL (50-170); Iron Binding Capacity,Total 388 ug/dL (250-450); PERCENT IRON SATURATION 14.4 % (15.0-55.0); Thyroid Stim Hormone (TSH) 1.42 uIU/mL (0.358-3.74)
== END | disposition home or self-care (01) ==
LOC: BFHLAB 15:52
PROVIDERS: PCP Family Medicine; Visit Provider Family Medicine
DX: Z00.00 Encounter for general adult medical examination without abnormal findings (principal); K63.89 Other specified diseases of intestine; R53.83 Other fatigue
CPT/HCPCS: 36415; 82306; 82607; 82728; 83540; 83550; 84443; 85025

== ENCOUNTER → 2022-05-02 | Outpatient (CLI) | payer MEDICAID, SELFPAY ==
[2022-05-02 12:41] LABS: Absolute Lymphocyte Count 1.62 X10^3/uL (0.83-4.51); Absolute Neutrophil Count 3.4 X10^3/uL (2.0-7.7); Basophil# 0.08 X10^3/uL; Basophil% 1.4 % (0-1); Eosinophils% 1.8 % (0-5); Hematocrit 40.8 % (37-47); Hemoglobin 12.9 g/dL (12.0-15.0); Lymphocyte # 1.62 X10^3/ul (0.83-4.51); Lymphocyte % 29.3 % (19-41); Mean Corp Hgb Conc 31.6 g/dL (32-36); Mean Corpuscular Hgb 27.1 pg (27.0-32.0); Mean Corpuscular Volume 85.7 fL (81-99); Mean Platelet Vol. 9.9 fl (6.2-12.0); Monocyte% 5.4 % (0-10); NRBC Flagged by Analyzer 0 % (0-5); Neutrophil # 3.41 X10^3/uL (2.7-7.7); Neutrophil % 61.9 % (47-70); Platelet Count 302 K/mm3 (150-450); RBC Distribution Width CV 12.9 % (11.6-14.6); RBC Distribution Width SD 40.6 fl (35.1-43.9); Red Blood Count 4.76 M/mm3 (4.2-5.4); White Blood Count 5.5 K/mm3 (4.4-11.0)
[2022-05-02 12:58] LABS: Erythrocyte Sedimentation Rate 1 mm/hr (0-30)
[2022-05-02 13:32] LABS: ALB/GLOB Ratio 1.1 RATIO (0.9-2.4); AST(SGOT) 14 U/L (15-37); Alanine Aminotransfer ALT/SGPT 18 U/L (13-56); Alkaline Phosphatase 94 U/L (45-117); Anion Gap 5 (5-15); BUN 14 mg/dL (7-18); BUN/Creat Ratio 17.6 RATIO (10-20); CRP < 2.90 mg/L (0.0-3.0); Calcium,Total 8.8 mg/dL (8.5-10.1); Chloride 110 mmol/L (98-107); EST Glomerular Filtration Rate 85 mL/min (>60); Est Glom Filt Rate - Afr Amer 102 mL/min (>60); Globulin 3.6 g/dL (2.2-4.2); Glucose 89 mg/dL (74-106); LDH 180 U/L (84-246); Potassium 3.8 mmol/L (3.5-5.1); Protein, Total 7.6 g/dL (6.4-8.2); Sodium Level 141 mmol/L (136-145)
[2022-05-03 15:09] LABS: Endomysial Antibody IgA Negative (Negative)
[2022-05-03 15:57] LABS: Immunoglobulin A 317 mg/dL (87-352); t-Transglutaminase IgA <2 U/mL (0-3)
[2022-05-03 16:09] LABS: Anti-Centromere B Ab <0.2 AI (0.0-0.9); Anti-Chromatin <0.2 AI (0.0-0.9); Anti-Jo <0.2 AI (0.0-0.9); Anti-Scleroderma-70 AB <0.2 AI (0.0-0.9); RNP Ab <0.2 AI (0.0-0.9); SJOGREN'S Anti-SS-A test < 0.2 AI (0.0-0.9); SJOGREN'S Anti-SS-B test < 0.2 AI (0.0-0.9); Smith Ab <0.2 AI (0.0-0.9)
[2022-05-03 17:32] LABS: Anti-dsDNA Ab 1 IU/mL (0-9)
[2022-05-07 21:07] LABS: Albumin 3.8 g/dL (2.9-4.4); Alpha-1-Globulins 0.2 g/dL (0.0-0.4); Alpha-2-Globulins 0.6 g/dL (0.4-1.0); Cytoplasmic Ab (C-ANCA) <1:20 titer (Neg:<1:20); Gamma Globulin 1.4 g/dL (0.4-1.8); Immunoglobulin A 309 mg/dL (87-352); Immunoglobulin E 19 IU/mL (6-495); Immunoglobulin G 1413 mg/dL (586-1602); Immunoglobulin M 211 mg/dL (26-217); PROEL- TOTAL PROTEIN 7.1 g/dL (6.0-8.5)
[2022-05-07 21:34] LABS: Perinuclear Ab (P-ANCA) <1:20 titer (Neg:<1:20)
== END | disposition home or self-care (01) ==
PROVIDERS: PCP Family Medicine; Visit Provider Nurse Practitioner Adult Health
DX: R14.0 Abdominal distension (gaseous) (principal); R10.9 Unspecified abdominal pain
CPT/HCPCS: 36415; 80053; 82784; 82785; 83516; 83615; 84165; 85025; 85652; 86140; 86225; 86235; 86255; 86256; 86334

== ENCOUNTER → 2022-05-08 | Outpatient (CLI) | payer MEDICAID, SELFPAY ==
[2022-05-11 22:44] LABS: Calprotectin, Stool 19 ug/g (0-120)
== END | disposition home or self-care (01) ==
LOC: LABSPEC 10:20
PROVIDERS: PCP Family Medicine; Referring Provider Nurse Practitioner Adult Health; Visit Provider Nurse Practitioner Adult Health
DX: R14.0 Abdominal distension (gaseous) (principal); R10.9 Unspecified abdominal pain
CPT/HCPCS: 83630; 83993

== ENCOUNTER → 2022-07-10 | Outpatient (CLI) | payer MEDICAID, SELFPAY | END | disposition home or self-care (01) | LOC: LABSPEC 11:43 | PROVIDERS: PCP Family Medicine; Referring Provider Family Medicine; Visit Provider Family Medicine | DX: R31.29 Other microscopic hematuria (principal) | CPT/HCPCS: 87086; 87088 ==

== ENCOUNTER → 2022-07-11 | Outpatient (CLI) | payer MEDICAID, SELFPAY ==
[2022-07-11 11:49] LABS: T3 Total - Triiodothyronine 1.24 ng/mL (0.6-1.81); Vitamin B12 515 pg/mL (211-911)
[2022-07-11 11:59] LABS: Estradiol 78.3 pg/mL; Follicle Stimulating Hormone 6.3 mIU/mL; Free T3 2.5 pg/mL (2.18-3.98); Luteinizing Hormone 2.2 mIU/mL; Prolactin 10.9 ng/mL; T4 Free Direct 1.06 ng/dL (0.76-1.46); Thyroid Stim Hormone (TSH) 1.74 uIU/mL (0.358-3.74)
[2022-07-14 15:07] LABS: Sex Hormone-binding Globulin 94.9 nmol/L (24.6-122.0); Testosterone, Free 0.14 ng/dL (0.10-0.85); Testosterone, Total 20 ng/dL (8-60)
[2022-07-16 10:09] LABS: 17-Hydroxyprogesterone 16 ng/dL (.)
== END | disposition home or self-care (01) ==
LOC: LAB 10:49
PROVIDERS: PCP Family Medicine; Referring Provider Obstetrics & Gynecology; Visit Provider Obstetrics & Gynecology
DX: E28.9 Ovarian dysfunction, unspecified (principal); E53.8 Deficiency of other specified B group vitamins
CPT/HCPCS: 36415; 82533; 82607; 82627; 82670; 83001; 83002; 83498; 84146; 84270; 84402; 84403; 84439; 84443; 84480; 84481; 82626

== ENCOUNTER → 2022-07-18 | Outpatient (CLI) | payer MEDICAID, SELFPAY ==
--- NOTE | 2022-07-18 12:56 | US_ITS ---
STUDY: RENAL ULTRASOUND - COMPLETE REASON FOR EXAM: Female, 41 years old. Bilateral flank pain. History of stones. TECHNIQUE: Ultrasound evaluation of the kidneys was performed with real-time and static goldstein-scale imaging. COMPARISON: Comparison is made with prior study dated April 12, 2021. FINDINGS: RIGHT KIDNEY: Normal location of the right kidney, which is normal in size. The right kidney measures 12.4 cm x 4.9 cm x 4.1 cm. There is a normal cortex of the right kidney. The renal cortex measures 1.1 cm. There is no right renal mass or cyst. There are no right renal calculi. There is no right hydronephrosis. DISTAL RIGHT URETER: There is non-visualization of the distal right ureter. There is no demonstrated right ureterovesical junction calculus. There is a visualized right ureteral jet. LEFT KIDNEY: Normal location of the left kidney, which is normal in size. The left kidney measures 12.5 cm x 6 cm x 5.1 cm. There is a normal cortex of the left kidney. The renal cortex measures 1.1 cm. There is no left renal mass or cyst. There are no left renal calculi. There is no left hydronephrosis. DISTAL LEFT URETER: There is non-visualization of the distal left ureter. There is no demonstrated left ureterovesical junction calculus. There is a visualized left ureteral jet. BLADDER: The distended urinary bladder has a volume of 209 ml. There is a normal wall thickness of the distended urinary bladder. There is no demonstrated mass within the urinary bladder. There are no demonstrated bladder calculi. Incidental note is made of fatty infiltration of the liver. US/Kidney and Bladder IMPRESSION: Normal ultrasound of the kidneys and urinary bladder. Electronically Signed: Joey Carrion MD at 11:49 EDT ,
== END | disposition home or self-care (01) ==
LOC: US 12:54
PROVIDERS: PCP Family Medicine; Referring Provider Family Medicine; Visit Provider Family Medicine
DX: R31.29 Other microscopic hematuria (principal); R10.9 Unspecified abdominal pain; N13.30 Unspecified hydronephrosis
CPT/HCPCS: 76770

== ENCOUNTER 2022-08-02 11:35 | Day surgery (SDC) | payer MEDICAID, SELFPAY ==
[2022-08-02 11:56] LABS: Internal QC Validated? YES +Cl - CLEAR BKGD; Pregnancy, Urine Negative Negative
[2022-08-02 12:11] VITALS: BP 129/93; PULSE 96; RESP 16; TEMP 36.1; O2SAT 100; BMI 26.4
[2022-08-02] MEDS: Lactated Ringers 1,000 ML 15 ML IV (12:15)
--- NOTE | 2022-08-02 12:30 | IMM_PTH ---
PATIENT: FAY LINDSEY LOC: EN U#:[id number] AGE/SX: 41/F ROOM: RE08/02/[address]: Dr. Joseph Harding DO : 1980 BED: DIS: 08/02/2022 SPEC #: [id number] RECD: 08/05/22 12:32 STATUS: HERMINIA REQ #: [id number] MEI: 08/02/22 12:[address]: Joseph Harding DEPT: IMMUNOHISTOCHEMISTRY RECD BY: Nakia Cantu ENTERED: 08/05/22 12:32 SP TYPE: IMMUNO OTHR DR: Dr. Sue Vivar MD Tissues: B - Stomach, NOS Procedures: H Pylori (initial) PHYSICIAN & INSTITUTION [place] [id number] SPECIMEN INFORMATION: Tissue Source: B ? Gastric body Clinical Info: Abdominal pain Specimen Number: [id number] CPT code: 40862 METHODOLOGY: Deparaffinized sections of prefer/formalin-fixed tissue or PAP/DQ stained slides are incubated with monoclonal/polyclonal antibodies/oligonucleotide probes. Localization is made via biotin free immunoperoxidase method. Appropriate controls are performed and reacted as expected. Results on target cell population are indicated in the following table: RESULTS: ANTIBODY / CLONE RESULT Block B H Pylori (polyclonal) negative These tests were developed and their performance characteristics determined by [facility]. They may not have been cleared or approved by the U.[place]. Food and Drug Administration. The FDA has determined that such clearance or approval is not necessary. The above immunohistochemical/dualISH markers are ordered and reviewed by the Pathologist. INTERPRETATION: B. Gastric body, biopsy: Negative for Helicobacter pylori organisms. [facility] 08/06/2022
--- NOTE | 2022-08-02 12:30 | EGD_PTH ---
PATIENT: FAY LINDSEY LOC: EN U#:[id number] AGE/SX: 41/F ROOM: RE08/02/[address]: Dr. Joseph Harding DO : 1980 BED: DIS: 08/02/2022 SPEC #: [id number] RECD: 08/02/22 15:19 STATUS: HERMINIA RELuis Alfredo #: [id number] MEI: 08/02/22 12:[address]: Joseph Harding DEPT: SURGICAL PATHOLOGY RECD BY: Pascale Jolley ENTERED: 08/05/22 08:46 SP TYPE: EGD BIOPSY OT DR: Dr. Sue Vivar MD Tissues: A - Duodenum, NOS B - Gastric mucous membrane C - Esophagus, NOS Procedures: Surgery Specimen Level IV HEADER OPERATION: EGD ([facility] [place]) PRE-OP DIAGNOSIS: Abdominal pain TISSUE SUBMITTED: A ? Duodenum, B ? Gastric body, C ? Random esophagus MICROSCOPIC DIAGNOSIS A. Duodenum, biopsy: Fragments of duodenal mucosa with Brandee gland hyperplasia and mild nonspecific chronic inflammation. B. Gastric body, biopsy: Mild gastritis. See microscopic description and comment. C. Esophagus, random biopsy: Fragments of benign squamous mucosa. See comment. SJ:winter 08/06/2022 COMMENT B. The results of immunohistochemistry for Helicobacter pylori will be reported separately ([id number]). C. Increased number of eosinophils consistent with eosinophilic esophagitis are not seen. MICROSCOPIC DESCRIPTION Slides are reviewed. B. The specimen shows fragments of gastric mucosa with chronic inflammatory cell infiltrates in the lamina propria consisting of lymphocytes and plasma cells, consistent with mild chronic gastritis. GROSS DESCRIPTION A - Received in fixative is one container labeled with the patient's name and designated duodenum. The specimen consists of multiple irregular fragments of light danielson soft tissue that in aggregate measure 1.5 x 0.3 x 0.1 cm. The specimen is totally submitted in one cassette. B - Received in fixative is one container labeled with the patient's name and designated gastric body. The specimen consists of multiple irregular fragments of light danielson soft tissue that in aggregate measure 1.2 x 0.3 x 0.1 cm. The specimen is totally submitted in one cassette. C - Received in fixative is one container labeled with the patient's name and designated random esophagus. The specimen consists of multiple irregular fragments of light danielson soft tissue that in aggregate measure 1.2 x 0.3 x 0.1 cm. The specimen is totally submitted in one cassette. / SJ:rg 08/05/2022 TC:3 CPT: 38267 x3
--- NOTE | 2022-08-02 12:53 | HP.PCM_ITS ---
History and Physical ?dysphagia Details: FAY LINDSEY, is a 41 F who presents to the office today for f/u chronic post- prandial bloating and abdominal pain. Many food sensitivities. Very sensitive to medication and anesthesia. Since her initial visit she has realized she often feels food sticking in her esophagus; has adapted by drinking water after every bite. 05/2022 workup: --negative for celiac --pattern not suggestive of inflammatory bowel disease --blood inflammatory markers are normal --stool inflammatory markers are negative She established with us on 05/02/22 for bloating and abdominal pain. Started about 6 yrs ago, has gotten worse over time. Symptoms occur every time she eats. Gets instant bloating throughout her entire abdomen where she looks . The abdominal pain is especially across the lower abdomen, possibly in pelvis too, but also can be periumbilical or epigastric. Has some nausea that is more recent, past few months, can occur after eating. No vomiting. Had acid reflux in her 20s, resolved with elimination diet and with improving her diet in general. If she eats processed food, dairy, sugar, peanut butter, or gluten then she will have some mild heartburn now. No dysphagia. Used to have BM daily; now having BM every day or every other day; doesn't feel constipated. Stools are softer than normal, not diarrhea. No melena or hematochezia. Stool is darker since doing elemental diet cleanse (purchased from doctor) x 3 wks. Not on iron or pepto bismol. 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 They recommended an antibiotic for 30 days (probably xifaxan) but she was hesitant to take an antibiotic and it was too expensive. After the elemental diet, every food hurt my stomach, causing bloating and pain. Only sweet potatoes don't cause pain. Green noe peppers are the worst food for her. Can get herself out of a flare of SIBO with dietary restrictions (especially elemental or autoimmune/paleo) but can't do those diets for senior living. Lost 26 lbs with elemental diet, but gained it right back. She reports she might have endometriosis, but hasn't wanted to do laparoscopy. She has had vertigo for 3 yrs, occurs especially when she lies down and when her neck is bothering her; has to sleeping sitting up on her couch. Is being treated by an ENT. 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 01/2022 CBC unremarkable, iron 56, ferritin 12, vitamin B12 628, vitamin D 27, TSH 1.42 03/2021 bilirubin 1.6 high, normal AST, normal ALT, normal alk phos 04/2021 [facility] ultrasound: Mild right hydronephrosis 03/2021 CT abdomen pelvis with oral and IV contrast: Small hiatal hernia, scattered colonic diverticula, fatty liver, mild right hydronephrosis ROS Const Constitutional: Positive for fatigue and weakness ENT ENT: Positive for difficulty swallowing Gastro GI: Positive for abdominal pain, bloating, diarrhea, heartburn, difficulty swallowing, excessive flatus and nausea/dyspepsia; No belching, change in bowel habits, change in stool character, coffee ground emesis, constipation, cramping, feeling full early, incontinent of stools, Vomiting blood/hematemesis, Blood in stool, loose stools, Black,tarry stools, pain with swallowing, vomiting or other Musc Musculoskeletal: Positive for back pain, joint swelling, muscle cramps and stif fness; No joint pain Skin Skin: No yellowing of the eye or itchy eyes Neuro Neurology: Positive for weakness Psych Psychiatric: Positive for anxiety and No depression Endo Endocrine: Positive for fatigue Aller/Imm Allergy/Immunologic: No itchy eyes Aldo/Lymp Hematologic/Lymphatic: No easy bleeding or easy bruising Exam Const General: cooperative and comfortable Orientation: alert, awake and oriented x3 Quality Reporting Tobacco Screening ([facility] 138) Smoking Status: Former smoker Assessment and Plan Assessment and Plan (1) Dysphagia: ?Status:?Chronic ?Plan: 41 yo female with dysphagia, abdominal bloating, abd pain. Consider EOE or Schatzki ring. CBC with normal eos. She has multiple food sensitivities. f/u in office 2 wks after EGD. (2) Bloating: ?Status:?Chronic ?Plan: Try to get bowels moving better, consider miralax, aloe vera gel pills, kiwi supplement pills; will see if that helps with bloating and pain I have examined the patient and the H&P has been reviewed. There are no clinical changes since date of exam.
--- NOTE | 2022-08-02 13:58 | OP.EGD_ITS ---
Patient Name: Catrina Chou Procedure Date: 08/02/2022 1:26 PM Date of : 1980 Age: 41 Procedure: Upper GI endoscopy Indications: Epigastric abdominal pain, Dysphagia Providers: Joseph Harding DO Referring MD: Joseph Harding DO Medicines: Monitored Anesthesia Care Patient Profile: This is a 41 year old female. Refer to note in patient chart for documentation of history and physical. Patient has symptoms of chronic epigastric abdominal pain and dysphagia with both liquids and solids. Complications: No immediate complications. Procedure: Pre-Anesthesia Assessment: - Prior to the procedure, a History and Physical was performed, and patient medications and allergies were reviewed. The risks and benefits of the procedure and the sedation options and risks were discussed with the patient. All questions were answered and informed consent was obtained. Patient identification and proposed procedure were verified by the physician in the pre-procedure area. Mental Status Examination: alert and oriented. Airway Examination: normal oropharyngeal airway and neck mobility. CV Examination: normal. Prophylactic Antibiotics: The patient does not require prophylactic antibiotics. Prior Anticoagulants: The patient has taken no previous anticoagulant or antiplatelet agents. After reviewing the risks and benefits, the patient was deemed in satisfactory condition to undergo the procedure. The anesthesia plan was to use monitored anesthesia care (MAC). Immediately prior to administration of medications, the patient was re-assessed for adequacy to receive sedatives. The heart rate, respiratory rate, oxygen saturations, blood pressure, adequacy of pulmonary ventilation, and response to care were monitored throughout the procedure. The physical status of the patient was re-assessed after the procedure. After obtaining informed consent, the endoscope was passed under direct vision. Throughout the procedure, the patient's blood pressure, pulse, and oxygen saturations were monitored continuously. The Endoscope was introduced through the mouth, and advanced to the second part of duodenum. The upper GI endoscopy was accomplished without difficulty. The patient tolerated the procedure well. Scope In: 1:45:18 PM Scope Out: 1:52:53 PM Total Procedure Duration Time 0 hours 7 minutes 35 seconds Findings: Mucosal changes including longitudinal furrows and small-caliber esophagus were found in the upper third of the esophagus and in the middle third of the esophagus. Biopsies were obtained from the proximal and distal esophagus with cold forceps for histology of suspected eosinophilic esophagitis. Verification of patient identification for the specimen was done. Estimated blood loss was minimal. Patchy mildly erythematous mucosa without bleeding was found in the gastric body. Biopsies were taken with a cold forceps for histology. Verification of patient identification for the specimen was done. Estimated blood loss was minimal. Patchy mildly erythematous mucosa without active bleeding and with no stigmata of bleeding was found in the duodenal bulb. Biopsies were taken with a cold forceps for histology. Verification of patient identification for the specimen was done. Estimated blood loss was minimal. Impression: - Esophageal mucosal changes consistent with eosinophilic esophagitis. Biopsied. - Erythematous mucosa in the gastric body. Biopsied. - Erythematous duodenopathy. Biopsied. Recommendation: - Discharge patient to home. - Resume previous diet. - Continue present medications. - Await pathology results. Procedure Code(s): --- Professional --- 69408, Esophagogastroduodenoscopy, flexible, transoral; with biopsy, single or multiple CPT copyright 2017 [employer]. All rights reserved. The codes documented in this report are preliminary and upon judicial administrative assistant review may be revised to meet current compliance requirements. Joseph Harding DO 08/02/2022 1:58:10 PM This report has been signed electronically. Number of Addenda: 0 Note Initiated On: 08/02/2022 1:26 PM
[2022-08-02 13:59] VITALS: BP 106/66; BP 129/93; PULSE 82; RESP 14; TEMP 37.1; O2SAT 96
--- NOTE | 2022-08-02 13:59 | OP.CCLET_ITS ---
08/02/2022 Sue Vivar [place] [id number] [address] Re : Upper GI endoscopy procedure for Catrina Chou Dear Dr. Vivar This procedure was performed on Tuesday, August 02, 2022. My impressions and recommendations are as follows: Impressions : - Esophageal mucosal changes consistent with eosinophilic esophagitis. Biopsied. - Erythematous mucosa in the gastric body. Biopsied. - Erythematous duodenopathy. Biopsied. Recommendations : - Discharge patient to home. - Resume previous diet. - Continue present medications. - Await pathology results. My findings are described in the full procedure note, which is enclosed. If I can be of further assistance, please feel free to contact me at . Sincerely, Joseph Harding, 08/02/2022 1:58:10 PM This report has been signed electronically.
[2022-08-02 14:00] VITALS: BP 104/66; BP 129/93; PULSE 87; RESP 18; O2SAT 99
[2022-08-02 14:05] VITALS: BP 103/64; BP 129/93; PULSE 82; RESP 18; O2SAT 99
[2022-08-02 14:15] VITALS: BP 115/75; BP 129/93; PULSE 83; RESP 18; TEMP 36.1; O2SAT 99
[2022-08-02 14:35] VITALS: BP 129/93
[2022-08-08 18:07] LABS: Beef <0.10 kU/L (Class 0); Chocolate <0.10 kU/L (Class 0); Clam <0.10 kU/L (Class 0); Codfish <0.10 kU/L (Class 0); Corn <0.10 kU/L (Class 0); Egg, White <0.10 kU/L (Class 0); Egg, Whole <0.10 kU/L (Class 0); Milk (Cow) <0.10 kU/L (Class 0); Peanut <0.10 kU/L (Class 0); Pork <0.10 kU/L (Class 0); SCALLOP <0.10 kU/L (Class 0); SESAME SEED <0.10 kU/L (Class 0); Shrimp <0.10 kU/L (Class 0); Soybean <0.10 kU/L (Class 0); Walnut, (Food) <0.10 kU/L (Class 0); Wheat <0.10 kU/L (Class 0)
== END 2022-08-02 14:59 | disposition home or self-care (01) ==
LOC: EN 11:37 → AC 11:42
PROVIDERS: Anesthesiology; PCP Family Medicine; Referring Provider Family Medicine; Visit Provider Internal Medicine Gastroenterology
PROC: 0DJ08ZZ Inspection of Upper Intestinal Tract, Via Natural or Artificial Opening Endoscopic (ICD-10-PCS; CPT 43235; principal; 2022-08-02 12:25)
DX: K20.0 Eosinophilic esophagitis (principal); K29.70 Gastritis, unspecified, without bleeding; R13.10 Dysphagia, unspecified; Z87.891 Personal history of nicotine dependence; R10.9 Unspecified abdominal pain; R14.0 Abdominal distension (gaseous)
CPT/HCPCS: 43239; 36415; 81025; 86003; 86005; 88305; 88342; J7120; J2405

== ENCOUNTER → 2023-01-10 | Outpatient (CLI) | payer MEDICAID, SELFPAY ==
--- NOTE | 2023-01-10 11:47 | NM_ITS ---
CLINICAL: 42-year-old female with history of abdominal bloating, clinical gastroparesis. SEMI-SOLID PHASE 99m Tc SULFUR COLLOID GASTRIC EMPTYING STUDY COMPARISON: None available FINDINGS: The patient was administered 1.1 mCi of 99m Tc sulfur colloid mixed with oatmeal and consumed per os. Image acquisitions in the anterior -posterior projections were obtained for 60 minutes. There is prompt visualization of the stomach. There is no gastroesophageal reflux identified. First order kinetics are maintained throughout the duration of the acquisitions. The T ? linear fit was extrapolated to be 79.86 minutes, (Normal: 12-56 minutes). NM/Gastric Emptying Study IMPRESSION: 1. ABNORMAL 99m Tc sulfur colloid semi-solid phase (oatmeal) gastric emptying imaging examination. A. There is delayed semi-solid phase gastric emptying compared to normal controls with maintained first order kinetics throughout all components of the examination. (Deangelo et al, J Nucl Med Tech 38: 186, 2010). Electronically Signed: Juan Daniel Rosenthal DO at 8:55 EST ,
== END | disposition home or self-care (01) ==
LOC: NM 11:47
PROVIDERS: PCP Family Medicine; Referring Provider Internal Medicine Gastroenterology; Visit Provider Internal Medicine Gastroenterology
DX: R14.0 Abdominal distension (gaseous) (principal)
CPT/HCPCS: 78264; A9541

== ENCOUNTER → 2023-01-14 | Outpatient (CLI) | payer MEDICAID, SELFPAY ==
[2023-01-20 04:06] LABS: Pancreatic Elastase, Fecal 346 (>200)
[2023-01-20 21:07] LABS: Calprotectin, Stool 8 ug/g (0-120); Fats, Neutral Increased (.); Fats, Total Increased (.)
== END | disposition home or self-care (01) ==
LOC: LABSPEC 09:15
PROVIDERS: PCP Family Medicine; Referring Provider Internal Medicine Gastroenterology; Visit Provider Internal Medicine Gastroenterology
DX: K58.9 Irritable bowel syndrome, unspecified (principal); T78.1XXA Other adverse food reactions, not elsewhere classified, initial encounter; R14.0 Abdominal distension (gaseous)
CPT/HCPCS: 82274; 82653; 82705; 83993; 87177; 87209; 87329; 87506

== ENCOUNTER → 2024-09-13 | Outpatient (CLI) | payer MEDICAID, SELFPAY ==
--- NOTE | 2024-09-13 14:50 | RAD_ITS ---
PROCEDURE: L/S SPINE MIN 4 VIEWS 09/13/2024 REASON FOR EXAM: BACK PAIN, SCIATICA TECHNIQUE: L/S SPINE MIN 4 VIEWS COMPARISON: None. FINDINGS: No evidence of acute fracture or dislocation. No visualized pars defects. Vertebral body heights and intervertebral disc spaces are maintained. Normal alignment. RAD/L/S Spine Min 4 Views IMPRESSION: No significant abnormality. Reading Location: [place] [id number]
== END | disposition home or self-care (01) ==
LOC: MTRAD 14:48
PROVIDERS: PCP Family Medicine; Referring Provider Nurse Practitioner Family; Visit Provider Nurse Practitioner Family
DX: M54.50 Low back pain, unspecified (principal); M54.32 Sciatica, left side
CPT/HCPCS: 72110

== ENCOUNTER → 2025-01-20 | Outpatient (CLI) | payer MEDICAID, SELFPAY ==
--- NOTE | 2025-01-20 12:46 | RAD_ITS ---
PROCEDURE: ANKLE MIN 3 VIEWS 01/20/2025 REASON FOR EXAM: LEFT ANKLE KYE TECHNIQUE: Procedure Code: RADANK Modality: DX Procedure: ANKLE MIN 3 VIEWS Laterality: Left COMPARISON: None FINDINGS: There is no evidence of fracture or dislocation. There are no joint space abnormalities. There is no plantar spur. There is mild soft tissue swelling over the lateral malleolus. RAD/Ankle min 3 Views IMPRESSION: Mild lateral ankle sprain. Reading Location: [place] [id number]
== END | disposition home or self-care (01) ==
LOC: MTRAD 12:44
PROVIDERS: PCP Family Medicine; Referring Provider Family Medicine; Visit Provider Family Medicine
DX: S93.402A Sprain of unspecified ligament of left ankle, initial encounter (principal)
CPT/HCPCS: 73610